=== PATIENT | female | born 1980 | race Caucasian/White ===

== ENCOUNTER → 2017-11-08 | Outpatient (CLI) | payer BC ==
[~2017-11-08] VITALS: Ht 163.8 cm; Wt 87.5 kg
[~2017-11-08] MED LIST: K-TAB20 PO; LASIX 20MG TABL20 MG PO
[2017-11-08 08:22] VITALS: BP 110/82; PULSE 84
== END ==
LOC: LIGHT 08:04
DX: K58.9 Irritable bowel syndrome, unspecified (principal); R52 Pain, unspecified; R60.9 Edema, unspecified; E66.9 Obesity, unspecified; Z68.32 Body mass index [BMI] 32.0-32.9, adult; Z71.3 Dietary counseling and surveillance
CPT/HCPCS: G0463

== ENCOUNTER → 2017-12-11 | Outpatient (CLI) | payer BC ==
[~2017-12-11] VITALS: Ht 163.8 cm; Wt 86.6 kg
== END ==
LOC: LIGHT 10:17
DX: E66.9 Obesity, unspecified (principal); Z71.3 Dietary counseling and surveillance

== ENCOUNTER → 2017-12-20 | Outpatient (CLI) | payer BC ==
[~2017-12-20] VITALS: Ht 163.8 cm; Wt 87.5 kg
[~2017-12-20] MED LIST changes: +PHENTERMINE15 MG PO
[2017-12-20 14:06] VITALS: BP 100/80; PULSE 72
== END ==
LOC: LIGHT 08:17
DX: K58.9 Irritable bowel syndrome, unspecified (principal); M25.551 Pain in right hip; E66.9 Obesity, unspecified; Z68.32 Body mass index [BMI] 32.0-32.9, adult; Z71.3 Dietary counseling and surveillance
CPT/HCPCS: G0463

== ENCOUNTER → 2018-02-28 | Outpatient (CLI) | payer BC ==
[~2018-02-28] VITALS: Ht 163.8 cm; Wt 81.9 kg
[2018-02-28 09:11] VITALS: BP 118/80; PULSE 64
== END ==
LOC: LIGHT 09:05
DX: G72.41 Inclusion body myositis [IBM] (principal); E66.9 Obesity, unspecified; Z68.31 Body mass index [BMI] 31.0-31.9, adult; Z71.3 Dietary counseling and surveillance
CPT/HCPCS: G0463